=== PATIENT | female | born 1980 | race Caucasian/White ===

== ENCOUNTER 2018-08-13 06:55 | Day surgery (SDC) | payer OTHER ==
[2018-08-13] MEDS ORDERED: SCOPOLAMINE HYDROBROMIDE 1.5MG/72HR PATCH TD ONE ×2 (07:26→08:48)
[2018-08-13] MEDS ORDERED: FAMOTIDINE/PF 20 MG/2 ML VIAL ONE ×2 (07:26→08:48)
[2018-08-13] MEDS ORDERED: ENOXAPARIN SODIUM 40 MG/0.4 ML DISP.SYRIN SQ ONE (07:26)
[2018-08-13] MEDS ORDERED: LACTATED RINGERS 1,000 ML IV ONE (07:26)
[2018-08-13] MEDS ORDERED: FENTANYL 250MCG/5ML VIAL ONE (08:48)
[2018-08-13] MEDS ORDERED: GLYCOPYRROLATE 0.2 MG/1 ML 1 ML ONE (08:48)
[2018-08-13] MEDS ORDERED: ONDANSETRON HCL/PF 4 MG/ 2ML VIAL ONE (08:48)
[2018-08-13] MEDS ORDERED: LIDOCAINE HCL 2% PF 100MG/5ML VIAL IJ ONE (08:48)
[2018-08-13] MEDS ORDERED: DEXAMETHASONE SOD PHOS 4 MG/ML VIAL ONE (08:48)
[2018-08-13] MEDS ORDERED: PHENYLEPHRINE HCL 10 MG/1 ML ONE (08:48)
[2018-08-13] MEDS ORDERED: PROPOFOL 200 MG/20 ML VIAL IV ONE (08:48)
[2018-08-13] MEDS ORDERED: ACETAMINOPHEN 1,000 MG/100 ML INJ IV ONE (08:48)
[2018-08-13] MEDS ORDERED: SUGAMMADEX 200 mg/2mL ML VIAL IV ONE (08:48)
[2018-08-13] MEDS ORDERED: MIDAZOLAM HCL 2 MG/2 ML VIAL ONE (08:48)
[2018-08-13] MEDS ORDERED: HYDROmorphone HCL/PF 2 MG/ML VIAL ONE ×2 (08:48→10:59)
[2018-08-13] MEDS ORDERED: KETOROLAC TROMETHAMINE 30 MG/1ML VIAL ONE (08:48)
[2018-08-13] MEDS ORDERED: ROCURONIUM BROMIDE 10 MG/ML 5ML VIAL ONE (08:48)
[2018-08-13] MEDS ORDERED: ePHEDrine SULFATE 50 MG/1 ML IVP ONE (08:48)
[2018-08-13] MEDS ORDERED: LACTATED RINGERS 1,000 ML IV.SOLN IV ONE (08:48)
[2018-08-13] MEDS ORDERED: VASOPRESSIN 20 UNIT/1 ML ONE (08:48)
[2018-08-13] MEDS ORDERED: CLINDAMYCIN PHOSPHATE 900 MG/6 ML VIAL ONE (08:48)
[2018-08-13] MEDS ORDERED: SEVOFLURANE 250 ML LIQUID IH ONE (08:48)
== END 2018-08-13 12:03 | disposition other institution (70) ==
LOC: OPSURG 06:55
PROVIDERS: ATTEND Surgery
DX: E66.01 Morbid (severe) obesity due to excess calories (principal); Z68.43 Body mass index [BMI] 50.0-59.9, adult; E78.49 Other hyperlipidemia; M54.5 Low back pain
CPT/HCPCS: 88305; A9270; J1100; J1170; J1650; J1885; J2001; J2250; J2370; J2405; J2704; J3490; J7120; S0028; 43235; 43775

== ENCOUNTER 2018-08-13 12:04 | Inpatient (IN) | payer OTHER ==
--- NOTE | 2018-08-13 12:15 | History and Physical Report ---
History of Present Illnes - History of Present Illness Reason for Visit: S/P Gastric Sleeve History of Present Illness: Patient is a 38-year-old white female who has tried multiple diets and exercise programs with no success. Patient states that she has always been overweight and has struggled since she was a teenager. Patient and surgeon decided to proceed with gastric sleeve procedure. Procedure went well without complications- patient will be admitted and monitored s/p surgical intervention. - Past Medical History Cardiac: HTN, Hyperlipidemia Pulmonary: Sleep Apnea (with CPAP) Psych: Anxiety, Depression Musculoskeletal: Other (joint pain of feet/ankles) Endocrine: obesity Grav: 2 Para: 2 - Past Surgical History Past Surgical History: Other (uterine ablation), Tubal Ligation, Other (carpal tunnel release- right) - Past Social History Smoke: Quit Alcohol: Rare Drugs: None Lives: With Family Domestic Violence: Negative - Health Maintenance Health Maintenance: Influenza Vaccine Influenza Vaccine: Current for this Influenza Season Pneumonia Vaccine: No Resuscitation Status: Full code - Unable to Obtain History Unable to Obtain: No Review of Systems - Review of Systems Constitutional: negative: Fever, Chills, Weakness Eyes: negative: pain ENT: negative: Ear Pain, Throat Pain Respiratory: negative: Cough, Shortness of Breath Cardiovascular: negative: Chest Pain, Edema Gastrointestinal: Abdominal Pain (minimal- status post gastric sleeve). negative: Nausea, Vomiting Genitourinary: negative: Dysuria Musculoskeletal: negative: Foot Pain Skin: negative: Rash Neurological: negative: Weakness - Medications/Allergies Allergies/Adverse Reactions: Allergies Allergy/AdvReac Type Severity Reaction Status Date / Time cephalexin Allergy Verified 08/13/18 12:02 tramadol Allergy Verified 08/13/18 12:02 trazodone Allergy Verified 08/13/18 12:02 Exam - Exam General: Alert, Oriented to Person, Oriented to Place, Oriented to Time, Cooperative, No acute distress HEENT: Atraumatic, PERRLA, Mouth Mucous membr. moist/[place], Nose Mucous membr. moist/[place] Neck: Normal Range of Motion Carotids: no bruit Lungs: Clear to auscultation, Normal air movement, Speaks full Sentences Cardiovascular: Regular rate, Normal S1, Normal S2 Peripheral Edema: none Peripheral Pulses: 2+ Abdomen: Decreased Bowel Sounds Integumentary: Normal, [place], Warm, Dry, Other (incision dressings dry/intact) Extremities: No edema, Normal pulses, No tenderness/swelling Neurological: Normal gait (patient has already ambulated twice), Normal speech, Strength Equal Bilat, Sensation intact, Cranial nerves 3-12 NL Psych/Mental Status: Mental status NL, Mood NL, Appropriate Affect Assessment/Plan - Assessment/Plan (1) S/P gastric surgery Status: Acute Current Visit: Yes Assessment: Incisions are without redness/erythema, legs are without tenderness/pain, LCTA Plan: Will monitor incision sites, patient will be placed on Lovenox daily, frequent ambulation and SCDs while in bed, patient will use incentive spirometer to prevent resp. infections, will start PPI, and will give IVFs until patient can tolerate PO (2) Morbid obesity due to excess calories Status: Acute Current Visit: Yes Assessment: S/P gastric sleeve (3) Obstructive sleep apnea Status: Acute Current Visit: Yes Assessment: Stable with CPAP Plan: Will wear CPAP (4) Anxiety and depression Status: Acute Current Visit: Yes Assessment: Stable on home meds Plan: Will hold home meds until morning as long as patient can tolerate PO (5) Hypertension Status: Acute Current Visit: Yes Qualifiers: Hypertension type: essential hypertension Qualified Code(s): I10 - Essential (primary) hypertension Assessment: Blood pressures stable Plan: Will hold blood pressure medication (6) Hyperlipidemia Status: Acute Current Visit: Yes Qualifiers: Hyperlipidemia type: mixed hyperlipidemia Qualified Code(s): E78.2 - Mixed hyperlipidemia Assessment: stable on home meds Plan: will hold home meds till morning until pt can tolerate PO VTE Assessment - RISK FACTOR SCORE VTE RISK FACTOR SCORES: OBESITY, MAJOR SURGERY/ANESTHESIA TIME > 1 HOUR (Lovenox daily, frequent ambulation, SCDs while in bed)
[2018-08-13] MEDS ORDERED: PROMETHAZINE HCL 25 MG in 0.9 % SODIUM CHLORIDE 50 ML IV PRN (12:24)
[2018-08-13] MEDS ORDERED: fentaNYL CITRATE/PF 100 MCG/ 2ML AMP IVP PRN (12:24)
[2018-08-13] MEDS ORDERED: ONDANSETRON HCL/PF 4 MG/ 2ML VIAL IVP PRN (12:24)
[2018-08-13] MEDS ORDERED: HYDROCODON-ACETAMIN 7.5-325/15ML SOLN UD CUP PO PRN (12:24)
[2018-08-13] MEDS ORDERED: KETOROLAC TROMETHAMINE 30 MG/1ML VIAL IVP PRN (12:24)
[2018-08-13] MEDS ORDERED: LEVALBUTEROL HCL 1.25 MG/3 ML AMPUL.NEB NEB PRN (12:24)
[2018-08-13] MEDS ORDERED: ENOXAPARIN SODIUM 40 MG/0.4 ML DISP.SYRIN SQ SCH (13:00)
[2018-08-13] MEDS ORDERED: ENOXAPARIN SODIUM 40 MG/0.4 ML DISP.SYRIN SQ ONE (13:06)
[2018-08-13] MEDS: 0.9 % SODIUM CHLORIDE 1,000 ML IV SCH ×2 (13:12→22:34)
[2018-08-13 14:32] VITALS: BMI 52.0
[2018-08-13] MEDS: CLINDAMYCIN PHOSPHATE/D5W 600 MG/50 ML PIGGYBACK IV SCH ×2 (17:29→22:48)
[2018-08-13] MEDS ORDERED: CEFAZOLIN SODIUM/DEXTROSE,ISO 1 GM/50 ML PIGGYBACK IV SCH (18:00)
[2018-08-13] MEDS: FAMOTIDINE/PF 20 MG/2 ML VIAL IVP SCH (21:25)
[2018-08-14] MEDS ORDERED: 0.9 % SODIUM CHLORIDE 500 ML IV ONE (06:49)
--- NOTE | 2018-08-14 06:58 | Diagnostic Imaging Report ---
SJ RAGSDALE [facility] [address] [facility] [address] [place], [place]. [address] Report Submission Date: Aug 14, 2018 6:48:56 AM HEALTH PHYSICS TECHNICIAN Patient Study Name: YOHANNES FRANCISCO Date: Aug 14, 2018 6:06:17 AM HEALTH PHYSICS TECHNICIAN Modality Type: CT\SR Gender: F Description: CT ABD PELVIS W/O CO : 84 Institution: [facility] Physician: SJ RAGSDALE CT Abdomen/pelvis without contrast History: pt is post op x's 1 day for gastric sleeve, pt states pain and nausea this am. OMNI 350 93 ml (Hx) / ITS.REASON Hypotension/near syncope/status post gastric sleeve No comparison studies Bibasilar atelectasis greater on the left. Free intraperitoneal air consistent with provided history of postsurgery. No acute osseous pathology Moderate to large amount of hemoperitoneum. Liver has an irregular contour posteriorly, axial series 3 images 24- 27. Hurtado catheter decompresses the bladder, with tip of the Hurtado catheter seen to extend into the pelvis, ? perforated bladder. The gallbladder, spleen, adrenal glands, pancreas, kidneys are within normal limits. Postprocedural changes of sleeve gastrectomy are noted Uterine margins are not clearly seen, no obvious bowel obstruction Impression: 1. Post gastric sleeve surgery with large amount of complex dense intraabdominal fluid consistent with hemoperitoneum. Hematoma is noted adjacent to the stomach and adjacent to the liver, in Chapin's pouch and in the lesser sac. Small amount of free intraperitoneal air due to recent surgery 2. There is contural irregularity with of posterior right hepatic lobe, ? Laceration 3. Hurtado catheter tip protrudes outside the bladder into the pelvis, bladder perforation needs to be ruled out. Critical findings were discussed by Dr. Bruno with RN Gela Dumont on 08/14/18 at approx. 6:45 am HEALTH PHYSICS TECHNICIAN Electronically signed on Aug 14, 2018 6:48:56 AM HEALTH PHYSICS TECHNICIAN by: Vielka MURGUIA
--- NOTE | 2018-08-14 07:02 | Inpatient Progress Note ---
Subjective - Required Recertification Statement I anticipate X number of days because-include discharge plan: 2 - Review of Systems Events since last encounter: According to nursing staff "Patient called out at 0310 saying that she wanted to get out of bed. Patient anxious and was taking off CPAP and wanted SCD's off. Patient had only used CPAP for three other nights. Thought it was making her nervous. Patient was tearful and needed reassurance. Checked VS BP 88/56 and recheck was 114/76. Blood sugar was 156. S/S seemed to be resolved. Patient pleasant and relaxed by 0330"- Received call from RN at 4:58 this morning with report- ER provider had come down and seen patient- 3 liters of NS was given- pt continued to decline. CT was ordered and lab notified to get Type and Cross Patient will receive 3 units of blood today General: Chills, Fatigue HEENT: Visual Changes ("near syncopal episodes"). Denies: Head Aches Pulmonary: Dyspnea Cardiovascular: [place]. Denies: Chest Pain Gastrointestinal: Nausea, Abdominal Pain Genitourinary: Denies: Dysuria Neurological: Weakness (Patient hypotensive with position changes) Objective - Exam Vitals and I&O: Vital Signs Temp 97.4 F L 08/14/18 06:00 Pulse 78 08/14/18 06:00 Resp 18 08/14/18 06:00 BP 88/49 08/14/18 06:00 Pulse Ox 90 L 08/14/18 06:00 Intake & Output 08/13/18 08/13/18 08/14/18 11:59 23:59 11:59 Intake Total 900 480 Output Total 450 0 Balance 450 480 Weight 141.974 kg Intake: IV 800 450 Right Wrist 800 450 Oral 100 30 Output: Urine 450 0 Other: Voiding Method Toilet Toilet # Voids 2 # Bowel Movements 0 General: Severe distress (pt is pale, clammy, diaphoretic, hypotensive, lethargi c), Morbidly Obese HEENT: Atraumatic, PERRLA Neck: +2 carotid pulse wo bruit Lungs: Clear to auscultation, Normal air movement Cardiovascular: Regular rate, Normal S1, Normal S2 Abdomen: Soft, Decreased Bowel Sounds Extremities: No edema, No tenderness/swelling. No: Normal pulses (radial/brachial pulses very weak) Skin: Pale, Diaphoresis Neurological: Generalized Weakness Psych/Mental Status: Appropriate Affect ([place]) - Results Results: Arrived to Unit at 6:00 a.m.- pt already received 3 liters of fluid by ER provider- on my drive in at 5:30 I ordered for lab to get in immediately for type and screen so we are ready to transfuse- marketing finance manager in room at 7 a.m.- unable to draw blood- pt decompensated- Arterial stick for lab drawn by me via right brachial artery. Explained to wastewater analyst lab analyst that I needed blood STAT. Patient is in reverse trendelenburg. RN is one on one at the bedside. CT results of Abdomen and Pelvis Impression: 1. Post gastric sleeve surgery with large amount of complex dense intraabdominal fluid consistent with hemoperitoneum. Hematoma is noted adjacent to the stomach and adjacent to the liver, in Chapin's pouch and in the lesser sac. Small amount of free intraperitoneal air due to recent surgery 2. There is contural irregularity with of posterior right hepatic lobe, ? Laceration 3. Hurtado catheter tip protrudes outside the bladder into the pelvis, bladder perforation needs to be ruled out. Report from Radiologist received at 06:[address] Mccoy at 06:55 - Procedures Procedures: Will give 3 units of blood- gave 1 emergency unit Assessment/Plan - Assessment/Plan (1) S/P gastric surgery Status: Acute Current Visit: Yes Assessment: Patient is hypotensive- abdomen is soft, patient is lethargic Plan: CT completed of abdomen, 1 unit of emergency blood given and will infuse 2 more units, patient will be closely monitored- stopped Toradol & Lovenox (2) Morbid obesity due to excess calories Status: Acute Current Visit: Yes Assessment: S/P gastric sleeve (3) Obstructive sleep apnea Status: Acute Current Visit: Yes Assessment: Stable with CPAP (4) Anxiety and depression Status: Acute Current Visit: Yes Assessment: Stable at this time Plan: Will continue to hold meds (5) Hypertension Status: Acute Current Visit: Yes Qualifiers: Hypertension type: essential hypertension Qualified Code(s): I10 - Essential (primary) hypertension Assessment: Patient is hypotensive- already holding blood pressure medication (6) Hyperlipidemia Status: Acute Current Visit: Yes Qualifiers: Hyperlipidemia type: mixed hyperlipidemia Qualified Code(s): E78.2 - Mixed hyperlipidemia Assessment: Stable on home medication Plan: Will continue to hold home medications
[2018-08-14] MEDS: 0.9 % SODIUM CHLORIDE 1,000 ML IV SCH ×3 (07:31→20:02)
[2018-08-14] MEDS: FAMOTIDINE/PF 20 MG/2 ML VIAL IVP SCH ×2 (09:08→20:05)
[2018-08-14 10:06] LABS: MEAN CORPUSCULAR HEMOGLOBIN 26.6 pg (28.0-34.0)
[2018-08-14 10:07] LABS: BASOPHILS % 0.3 (0.0-1.5); EOSINOPHILS % 0.8 % (0.0-6.8); MONOCYTES % 6.8 % (0.0-11.0); NEUTROPHILS # 11.8 # k/uL (1.4-7.7); eGFR (Non-African) > 60
[2018-08-14 11:59] LABS: BASOPHILS % 0.5 (0.0-1.5); EOSINOPHILS % 0.9 % (0.0-6.8); MEAN CORPUSCULAR HEMOGLOBIN 27.1 pg (28.0-34.0); NEUTROPHILS # 15.4 # k/uL (1.4-7.7)
[2018-08-14] MEDS ORDERED: ENOXAPARIN SODIUM 40 MG/0.4 ML DISP.SYRIN SQ SCH (13:00)
[2018-08-14 20:47] LABS: BASOPHILS % 0.5 (0.0-1.5); EOSINOPHILS % 1.1 % (0.0-6.8); MEAN CORPUSCULAR HEMOGLOBIN 27.5 pg (28.0-34.0); MONOCYTES % 5.2 % (0.0-11.0); NEUTROPHILS # 13.4 # k/uL (1.4-7.7)
[2018-08-15] MEDS: 0.9 % SODIUM CHLORIDE 1,000 ML IV SCH (04:00)
[2018-08-15 07:46] LABS: BASOPHILS % 0.4 (0.0-1.5); EOSINOPHILS % 0.7 % (0.0-6.8); MEAN CORPUSCULAR HEMOGLOBIN 27.5 pg (28.0-34.0); MONOCYTES % 6.8 % (0.0-11.0); NEUTROPHILS # 9.5 # k/uL (1.4-7.7)
[2018-08-15 07:52] LABS: eGFR (Non-African) > 60
--- NOTE | 2018-08-15 08:09 | Inpatient Progress Note ---
Subjective - Required Recertification Statement I anticipate X number of days because-include discharge plan: 1 - Review of Systems General: Fatigue HEENT: Denies: Eye Pain, Ear Pain Pulmonary: Denies: Dyspnea, Cough Cardiovascular: Denies: Chest Pain Gastrointestinal: Nausea, Abdominal Pain (mild tenderness). Denies: Vomiting Genitourinary: Denies: Dysuria Musculoskeletal: Back Pain (from laying in bed) Neurological: Weakness Objective - Exam Vitals and I&O: Vital Signs Temp 98.5 F 08/15/18 05:16 Pulse 98 H 08/15/18 05:19 Resp 18 08/15/18 05:19 BP 102/48 08/15/18 05:16 Pulse Ox 92 08/15/18 05:16 Intake & Output 08/14/18 08/14/18 08/15/18 11:59 23:59 11:59 Intake Total 1830 540 200 Output Total 520 175 700 Balance 1310 365 -500 Intake: IV 1800 360 Right Wrist 1800 360 Oral 30 180 200 Output: Urine 520 175 700 Uretheral (Pate) 120 350 Other: Voiding Method Indwelling Catheter Indwelling Catheter Indwelling Catheter # Voids 2 # Bowel Movements 0 0 General: Alert, Oriented to Person, Oriented to Place, Oriented to Time, Cooperative, Mild distress HEENT: Atraumatic, PERRLA, Mouth Mucous membr. moist/[place], Nose Mucous membr. moist/[place] Neck: +2 carotid pulse wo bruit Lungs: Clear to auscultation, Normal air movement, Speaks full Sentences. No: Respiratory Distress, Wheezes Cardiovascular: Regular rate, Normal S1, Normal S2 Abdomen: Normal bowel sounds, Soft Extremities: No edema, Normal pulses, No tenderness/swelling Skin: Normal, [place], Warm, Dry Neurological: Normal gait, Normal speech, Strength Equal Bilat, Sensation intact Psych/Mental Status: Mental status NL, Mood NL, Appropriate Affect, Intact Judgment - Results Results: Laboratory Results WBC 13.20 K/ul (4.00-12.00) H 08/15/18 07:10 RBC 3.43 M/ul (3.90-5.20) L 08/15/18 07:10 Hgb 9.4 g/dL (12.0-16.0) L 08/15/18 07:10 Hct 28.5 % (34.5-46.5) L 08/15/18 07:10 MCV 83.0 fl (80.0-100.0) 08/15/18 07:10 MCH 27.5 pg (28.0-34.0) L 08/15/18 07:10 MCHC 33.1 g/dL (30.0-36.0) 08/15/18 07:10 RDW 15.6 % (11.3-14.3) H 08/15/18 07:10 Plt Count 266 K/mm3 (130-400) 08/15/18 07:10 Neut % (Auto) 72.4 % (39.0-79.0) 08/15/18 07:10 Lymph % (Auto) 19.7 % (16.0-50.0) 08/15/18 07:10 [place] % (Auto) 6.8 % (0.0-11.0) 08/15/18 07:10 Eos % (Auto) 0.7 % (0.0-6.8) 08/15/18 07:10 Baso % (Auto) 0.4 (0.0-1.5) 08/15/18 07:10 Neut # (Auto) 9.5 # k/uL (1.4-7.7) H 08/15/18 07:10 Lymph # (Auto) 2.6 # k/uL (0.6-4.0) 08/15/18 07:10 [place] # (Auto) 0.9 # k/uL (0.0-0.9) 08/15/18 07:10 Eos # (Auto) 0.1 # k/uL (0.0-0.6) 08/15/18 07:10 Baso # (Auto) 0.1 # k/uL (0.0-0.5) 08/15/18 07:10 Sodium 137 mmol/L (136-145) 08/15/18 07:10 Potassium 4.0 mmol/L (3.5-5.1) 08/15/18 07:10 Chloride 109 mmol/L (98-107) H 08/15/18 07:10 Carbon Dioxide 24 mmol/L (22-30) 08/15/18 07:10 BUN 12 mg/dL (7-17) 08/15/18 07:10 Creatinine 0.90 mg/dL (0.52-1.04) 08/15/18 07:10 Estimated Creat Clear 227 08/15/18 07:10 Est GFR ( Amer) > 60 (60-) 08/15/18 07:10 Est GFR (Non-Af Amer) > 60 (60-) 08/15/18 07:10 Glucose 124 mg/dL (74-106) H 08/15/18 07:10 Calcium 7.6 mg/dL (8.4-10.2) L 08/15/18 07:10 Total Bilirubin 0.3 mg/dL (0.2-1.3) 08/15/18 07:10 AST 16 U/L (15-46) 08/15/18 07:10 ALT 23 U/L (13-69) 08/15/18 07:10 Alkaline Phosphatase 60 U/L (38-126) 08/15/18 07:10 Total Protein 5.5 g/dL (6.3-8.2) L 08/15/18 07:10 Albumin 3.2 g/dL (3.5-5.0) L 08/15/18 07:10 Assessment/Plan - Assessment/Plan (1) S/P gastric surgery Status: Acute Current Visit: Yes Assessment: Patient doing very well today, skin is pink warm and dry, abdomen is soft with bowel sounds, heart is regular, incision dressings are dry and intact x5 Plan: Will continue to monitor Hgb. H & H this morning 9.4 & 28.5- Will get another CBC at 15:00. Patient had pate catheter removed and is voiding, we will get her up slowly in room and see how she does. If she does well we will get her up and walking in the hallway with assistance. She has been using incentive spirometer frequently and wearing SCDs while in bed. (2) Morbid obesity due to excess calories Status: Acute Current Visit: Yes Assessment: S/P gastric sleeve Plan: Monitoring diet - strict gastric sleeve protocol (3) Obstructive sleep apnea Status: Acute Current Visit: Yes Assessment: Stable with CPAP Plan: Continue to use CPAP (4) Anxiety and depression Status: Acute Current Visit: Yes Assessment: Patient would like to take her Wellbutrin Plan: Will start Wellbutrin (5) Hypertension Status: Acute Current Visit: Yes Qualifiers: Hypertension type: essential hypertension Qualified Code(s): I10 - Essential (primary) hypertension Assessment: Blood pressures are stable Plan: Will continue to hold blood pressure medication (6) Hyperlipidemia Status: Acute Current Visit: Yes Qualifiers: Hyperlipidemia type: mixed hyperlipidemia Qualified Code(s): E78.2 - Mixed hyperlipidemia Assessment: stable on home meds Plan: Continuing to hold medication
[2018-08-15] MEDS: buPROPion 150 MG TAB.ER.12H PO SCH ×2 (09:07→20:07)
[2018-08-15] MEDS: FAMOTIDINE/PF 20 MG/2 ML VIAL IVP SCH ×2 (09:07→20:57)
--- NOTE | 2018-08-15 23:20 | Diagnostic Imaging Report ---
SJ RAGSDALE [facility] [address] [facility] [address] [place] [address]. [id number] Report Submission Date: Aug 15, 2018 11:13:22 PM SECOND MILLER Patient Study Name: YOHANNES FRANCISCO Date: Aug 15, 2018 10:40:13 PM SECOND MILLER Modality Type: CT\SR Gender: F Description: CT ABD PELVIS W/ CON : 84 Institution: [facility] Physician: SJ RAGSDALE Computed tomography abdomen pelvis without contrast History: Low hemoglobin and low blood pressure Findings: Transverse abdomen and pelvis sections are obtained without contrast and compared with yesterday's exam. Gastric sleeve, gallbladder distension, mild bibasilar atelectasis, and moderately large right perihepatic hemoperitoneum are unchanged. The margin of the hemoperitoneum cannot be differentiated from the liver margin as they are isodense. The spleen, pancreas, adrenals, and kidneys are unremarkable. Bowel loops exhibit normal caliber and wall thickness. Pelvic sections reveal moderate hemoperitoneum without change since yesterday. A single air bubble is present in the urinary bladder. The margins of the uterus and ovaries are obscured by blood. Impression: 1. Moderate to large hemoperitoneum without change since yesterday. 2. Gastric sleeve, mild bibasilar atelectasis, and urinary bladder air bubble. Electronically signed on Aug 15, 2018 11:13:22 PM SECOND MILLER by: Mannie MURGUIA
[2018-08-16 07:37] LABS: BASOPHILS % 0.6 (0.0-1.5); EOSINOPHILS % 1.7 % (0.0-6.8); MEAN CORPUSCULAR HEMOGLOBIN 27.4 pg (28.0-34.0); MONOCYTES % 5.5 % (0.0-11.0)
[2018-08-16] MEDS ORDERED: 0.9 % SODIUM CHLORIDE 1,000 ML IV ONE ×2 (07:54→14:49)
[2018-08-16] MEDS ORDERED: 0.9 % SODIUM CHLORIDE 1,000 ML IV SCH ×2 (08:02→09:00)
[2018-08-16] MEDS: FAMOTIDINE/PF 20 MG/2 ML VIAL IVP SCH ×2 (08:58→20:04)
--- NOTE | 2018-08-16 08:59 | Inpatient Progress Note ---
Subjective - Required Recertification Statement I anticipate X number of days because-include discharge plan: 1 - Review of Systems Events since last encounter: Patient being monitored closely- Hgb last night dropped to 8.6 and systolic BP < 100- pt was not symptomatic according to staff. Decided to repeat Abdominal CT which is unchanged from the . HgB this morning via finger stick was 8.1. Patient is asymptomatic- alert and oriented, skin is pink warm dry, abdomen is soft with + bowel sounds, she is up and ambulatory without dizziness. We will advance patient diet to Bariatric stage 2 and start protein drinks. She is denying nausea or vomiting. We will get another CBC at 15:00 today. Will add NS @150cc/hr for additional hydration. (I have been in contact with Dr. Mccoy daily and updating on patient condition). CT of Abdomen; Impression: 1. Moderate to large hemoperitoneum without change since yesterday. 2. Gastric sleeve, mild bibasilar atelectasis, and urinary bladder air bubble. General: Denies: Fatigue, Appetite HEENT: Denies: Eye Pain, Ear Pain, Sore Throat Pulmonary: Denies: Dyspnea, Cough Cardiovascular: Denies: Chest Pain Gastrointestinal: Denies: Nausea, Vomiting, Abdominal Pain Genitourinary: Denies: Dysuria Musculoskeletal: Denies: Back Pain Neurological: Denies: Weakness Objective - Exam Vitals and I&O: Vital Signs Temp 98.3 F 08/16/18 08:19 Pulse 84 08/16/18 08:19 Resp 20 08/16/18 08:19 BP 80/50 08/16/18 08:19 Pulse Ox 96 08/16/18 08:19 Intake & Output 08/15/18 08/15/18 08/16/18 11:59 23:59 11:59 Intake Total 560 1170 180 Output Total 700 Balance -140 1170 180 Intake: IV 10 Right Antecubital 10 Oral 560 1160 180 Output: Urine 700 Uretheral (Hurtado) 350 Other: Voiding Method Toilet Toilet Toilet # Voids 0 2 1 # Bowel Movements 0 0 General: Alert, Oriented to Person, Oriented to Place, Oriented to Time, Cooperative, No acute distress HEENT: Atraumatic, EOMI, Mouth Mucous membr. moist/[place], Nose Mucous membr. moist/[place] Neck: +2 carotid pulse wo bruit Lungs: Clear to auscultation, Normal air movement, Speaks full Sentences Cardiovascular: Regular rate, Normal S1, Normal S2 Abdomen: Normal bowel sounds, Soft, No tenderness Extremities: No edema, Normal pulses, No tenderness/swelling Skin: Normal, [place], Warm, Dry Neurological: Normal gait, Normal speech, Strength Equal Bilat, Cranial nerves 3-12 NL Psych/Mental Status: Mental status NL, Mood NL, Appropriate Affect, Intact Judgment - Results Results: Laboratory Results WBC 8.00 K/ul (4.00-12.00) 08/16/18 07:15 RBC 2.94 M/ul (3.90-5.20) L 08/16/18 07:15 Hgb 8.1 g/dL (12.0-16.0) L 08/16/18 07:15 Hct 24.4 % (34.5-46.5) L 08/16/18 07:15 MCV 83.0 fl (80.0-100.0) 08/16/18 07:15 MCH 27.4 pg (28.0-34.0) L 08/16/18 07:15 MCHC 33.1 g/dL (30.0-36.0) 08/16/18 07:15 RDW 14.7 % (11.3-14.3) H 08/16/18 07:15 Plt Count 181 K/mm3 (130-400) 08/16/18 07:15 Neut % (Auto) 62.6 % (39.0-79.0) 08/16/18 07:15 Lymph % (Auto) 29.6 % (16.0-50.0) 08/16/18 07:15 [place] % (Auto) 5.5 % (0.0-11.0) 08/16/18 07:15 Eos % (Auto) 1.7 % (0.0-6.8) 08/16/18 07:15 Baso % (Auto) 0.6 (0.0-1.5) 08/16/18 07:15 Neut # (Auto) 5.0 # k/uL (1.4-7.7) 08/16/18 07:15 Lymph # (Auto) 2.4 # k/uL (0.6-4.0) 08/16/18 07:15 [place] # (Auto) 0.4 # k/uL (0.0-0.9) 08/16/18 07:15 Eos # (Auto) 0.1 # k/uL (0.0-0.6) 08/16/18 07:15 Baso # (Auto) 0.1 # k/uL (0.0-0.5) 08/16/18 07:15 Sodium 137 mmol/L (136-145) 08/15/18 07:10 Potassium 4.0 mmol/L (3.5-5.1) 08/15/18 07:10 Chloride 109 mmol/L (98-107) H 08/15/18 07:10 Carbon Dioxide 24 mmol/L (22-30) 08/15/18 07:10 BUN 12 mg/dL (7-17) 08/15/18 07:10 Creatinine 0.90 mg/dL (0.52-1.04) 08/15/18 07:10 Estimated Creat Clear 227 08/15/18 07:10 Est GFR ( Amer) > 60 (60-) 08/15/18 07:10 Est GFR (Non-Af Amer) > 60 (60-) 08/15/18 07:10 Glucose 124 mg/dL (74-106) H 08/15/18 07:10 Calcium 7.6 mg/dL (8.4-10.2) L 08/15/18 07:10 Total Bilirubin 0.3 mg/dL (0.2-1.3) 08/15/18 07:10 AST 16 U/L (15-46) 08/15/18 07:10 ALT 23 U/L (13-69) 08/15/18 07:10 Alkaline Phosphatase 60 U/L (38-126) 08/15/18 07:10 Total Protein 5.5 g/dL (6.3-8.2) L 08/15/18 07:10 Albumin 3.2 g/dL (3.5-5.0) L 08/15/18 07:10 Assessment/Plan - Assessment/Plan (1) S/P gastric surgery Status: Acute Current Visit: Yes Assessment: pt physical exam negative, BP <100 systolic, HgB 8.1 Plan: Will continue to monitor VS, she is ambulating frequently, SCDs while in bed, using Incentive Spirometer frequently, we will continue to monitor Hgb, CT of abdomen was unchanged, will advance diet to Bariatric stage 2 and introduce protein drinks (2) Morbid obesity due to excess calories Status: Acute Current Visit: Yes Assessment: S/P gastric sleeve (3) Obstructive sleep apnea Status: Acute Current Visit: Yes Assessment: Uses CPAP (4) Anxiety and depression Status: Acute Current Visit: Yes Assessment: Stable on home meds Plan: Will continue Wellbutrin (5) Hypertension Status: Acute Current Visit: Yes Qualifiers: Hypertension type: essential hypertension Qualified Code(s): I10 - Essential (primary) hypertension Assessment: Blood pressure < 100 systolic Plan: Will continue to hold BP med (6) Hyperlipidemia Status: Acute Current Visit: Yes Qualifiers: Hyperlipidemia type: mixed hyperlipidemia Qualified Code(s): E78.2 - Mixed hyperlipidemia Assessment: Stable on home meds Plan: Will continue to hold home med
[2018-08-16] MEDS: buPROPion 150 MG TAB.ER.12H PO SCH ×2 (09:00→20:05)
[2018-08-17 07:41] LABS: BASOPHILS % 0.4 (0.0-1.5); EOSINOPHILS % 1.9 % (0.0-6.8); MEAN CORPUSCULAR HEMOGLOBIN 26.8 pg (28.0-34.0); MONOCYTES % 6.2 % (0.0-11.0); NEUTROPHILS # 5.8 # k/uL (1.4-7.7)
--- NOTE | 2018-08-17 07:46 | Inpatient Progress Note ---
Subjective - Required Recertification Statement I anticipate X number of days because-include discharge plan: 1 - Review of Systems Events since last encounter: Patient has done physically well over the last 24 hours. She is alert and oriented- has been up walking in the halls without and difficulty- she has had no shortness of breath, abdomen is soft with + bowel sounds, patient states that she feels great. However, blood draw this am showed a Hgb < 6, redrew lab and 2nd Hgb was 6.8- Contacted Dr. Mccoy and we decided to transfuse 2 more units and keep patient another night. We will continue to monitor patient closely. She is still using her incentive spirometer frequently- tolerating stage 2 Bariatric Diet very well. General: Denies: Malaise HEENT: Denies: Eye Pain, Ear Pain Pulmonary: Denies: Dyspnea, Cough Cardiovascular: Denies: Chest Pain, Palpitations, Edema, Light Headedness Gastrointestinal: Denies: Nausea, Vomiting, Abdominal Pain Genitourinary: Denies: Dysuria Musculoskeletal: Denies: Back Pain Neurological: Denies: Weakness Objective - Exam Vitals and I&O: Vital Signs Temp 97.8 F 08/17/18 06:00 Pulse 86 08/17/18 06:00 Resp 20 08/17/18 06:00 BP 84/54 08/17/18 06:00 Pulse Ox 96 08/17/18 06:00 Intake & Output 08/16/18 08/16/18 08/17/18 11:59 23:59 11:59 Intake Total 180 1800 30 Output Total 600 600 Balance 180 1200 -570 Intake: IV 1000 Left wrist 1000 Oral 180 800 30 Output: Urine 600 600 Other: Voiding Method Toilet Toilet # Voids 1 2 1 # Bowel Movements 2 General: Alert, Oriented to Person, Oriented to Place, Oriented to Time, Cooperative HEENT: Atraumatic, PERRLA, Mouth Mucous membr. moist/Kam[place], Nose Mucous membr. moist/[place]rar Neck: No JVD, +2 carotid pulse wo bruit Lungs: Clear to auscultation, Normal air movement, Speaks full Sentences Cardiovascular: Regular rate, Normal S1, Normal S2 Abdomen: Normal bowel sounds, Soft Extremities: No edema, Normal pulses, No tenderness/swelling Skin: Normal, [place], Warm, Dry Neurological: Normal gait, Normal speech, Strength Equal Bilat, Sensation intact Psych/Mental Status: Mental status NL, Mood NL, Appropriate Affect - Results Results: Laboratory Results WBC 8.00 K/ul (4.00-12.00) 08/16/18 07:15 RBC 2.94 M/ul (3.90-5.20) L 08/16/18 07:15 Hgb 8.1 g/dL (12.0-16.0) L 08/16/18 07:15 Hct 24.4 % (34.5-46.5) L 08/16/18 07:15 MCV 83.0 fl (80.0-100.0) 08/16/18 07:15 MCH 27.4 pg (28.0-34.0) L 08/16/18 07:15 MCHC 33.1 g/dL (30.0-36.0) 08/16/18 07:15 RDW 14.7 % (11.3-14.3) H 08/16/18 07:15 Plt Count 181 K/mm3 (130-400) 08/16/18 07:15 Neut % (Auto) 62.6 % (39.0-79.0) 08/16/18 07:15 Lymph % (Auto) 29.6 % (16.0-50.0) 08/16/18 07:15 Wilcox % (Auto) 5.5 % (0.0-11.0) 08/16/18 07:15 Eos % (Auto) 1.7 % (0.0-6.8) 08/16/18 07:15 Baso % (Auto) 0.6 (0.0-1.5) 08/16/18 07:15 Neut # (Auto) 5.0 # k/uL (1.4-7.7) 08/16/18 07:15 Lymph # (Auto) 2.4 # k/uL (0.6-4.0) 08/16/18 07:15 Wilcox # (Auto) 0.4 # k/uL (0.0-0.9) 08/16/18 07:15 Eos # (Auto) 0.1 # k/uL (0.0-0.6) 08/16/18 07:15 Baso # (Auto) 0.1 # k/uL (0.0-0.5) 08/16/18 07:15 Sodium 137 mmol/L (136-145) 08/15/18 07:10 Potassium 4.0 mmol/L (3.5-5.1) 08/15/18 07:10 Chloride 109 mmol/L (98-107) H 08/15/18 07:10 Carbon Dioxide 24 mmol/L (22-30) 08/15/18 07:10 BUN 12 mg/dL (7-17) 08/15/18 07:10 Creatinine 0.90 mg/dL (0.52-1.04) 08/15/18 07:10 Estimated Creat Clear 227 08/15/18 07:10 Est GFR ( Amer) > 60 (60-) 08/15/18 07:10 Est GFR (Non-Af Amer) > 60 (60-) 08/15/18 07:10 Glucose 124 mg/dL (74-106) H 08/15/18 07:10 Calcium 7.6 mg/dL (8.4-10.2) L 08/15/18 07:10 Total Bilirubin 0.3 mg/dL (0.2-1.3) 08/15/18 07:10 AST 16 U/L (15-46) 08/15/18 07:10 ALT 23 U/L (13-69) 08/15/18 07:10 Alkaline Phosphatase 60 U/L (38-126) 08/15/18 07:10 Total Protein 5.5 g/dL (6.3-8.2) L 08/15/18 07:10 Albumin 3.2 g/dL (3.5-5.0) L 08/15/18 07:10 Assessment/Plan - Assessment/Plan (1) S/P gastric surgery Status: Acute Current Visit: Yes Assessment: LCTA, HRR, Abdomen soft with + bowel sounds, no edema or tenderness to lower extremities Plan: Due to low hemoglobin we will transfuse 2 units of PRBC today (2) Morbid obesity due to excess calories Status: Acute Current Visit: Yes Assessment: S/P GAstric Sleeve (3) Obstructive sleep apnea Status: Acute Current Visit: Yes Assessment: patient states that CPAP machine has to much pressure Plan: RT will look at machine today (4) Anxiety and depression Status: Acute Current Visit: Yes Assessment: stable on home meds Plan: Will continue wellbutrin (5) Hypertension Status: Acute Current Visit: Yes Qualifiers: Hypertension type: essential hypertension Qualified Code(s): I10 - Essential (primary) hypertension Assessment: stable on home meds Plan: Will hold home meds (blood pressure stables) (6) Hyperlipidemia Status: Acute Current Visit: Yes Qualifiers: Hyperlipidemia type: mixed hyperlipidemia Qualified Code(s): E78.2 - Mixed hyperlipidemia Assessment: stable on home meds Plan: Will hold medication at this time
[2018-08-17] MEDS ORDERED: 0.9 % SODIUM CHLORIDE 0 ML IV ONE (07:58)
[2018-08-17] MEDS: buPROPion 150 MG TAB.ER.12H PO SCH ×2 (08:53→20:49)
[2018-08-17] MEDS: FAMOTIDINE/PF 20 MG/2 ML VIAL IVP SCH (09:03)
[2018-08-18 07:02] LABS: MEAN CORPUSCULAR HEMOGLOBIN 27.7 pg (28.0-34.0); MONOCYTES % 6.6 % (0.0-11.0)
[2018-08-18 07:03] LABS: BASOPHILS % 0.6 (0.0-1.5); EOSINOPHILS % 2.5 % (0.0-6.8); NEUTROPHILS # 7.2 # k/uL (1.4-7.7)
[2018-08-18] MEDS ORDERED: ONDANSETRON HCL 4 MG TAB.RAPDIS PO ONE (07:04)
[2018-08-18] MEDS ORDERED: HYDROcodone /APAP 10/325 1 EACH TABLET PO ONE (07:05)
--- NOTE | 2018-08-18 07:11 | Discharge Summary ---
Discharge Summary - Discharge Sumary History of Present Illness: Patient is a 38-year-old white female who has tried multiple diets and exercise programs with no success. Patient states that she has always been overweight and has struggled since she was a teenager. Patient and surgeon decided to proceed with gastric sleeve procedure. Procedure went well without complications- patient will be admitted and monitored s/p surgical intervention. Condition at Discharge: Stable Home Medications: Ambulatory Orders Medication Instructions Recorded Bupropion HCl [Wellbutrin Xl] 300 mg PO DAILY 08/13/18 Buspirone HCl [Buspar] 15 mg PO DAILY 08/13/18 RX: Atorvastatin Calcium 40 mg PO HS 08/13/18 RX: Hydrochlorothiazide 25 mg PO DAILY 08/13/18 RX: Quetiapine Fumarate 50 mg PO BID 08/13/18 Consultations this Visit: None Procedures this Visit: Transfusion (x4 units), Other (s/p gastric sleeve) Allergies/Adverse Reactions: Allergies Allergy/AdvReac Type Severity Reaction Status Date / Time cephalexin Allergy Mild Verified 08/13/18 15:55 tramadol Allergy Verified 08/13/18 12:02 trazodone Allergy Verified 08/13/18 12:02 Patient Problems: Current Active Problems Problem Status Onset Anxiety and depression Acute Hyperlipidemia Acute Hypertension Acute Morbid obesity due to excess calories Acute Obstructive sleep apnea Acute S/P gastric surgery Acute Discharge Summary: Patient is very eager to go home today- She states that she feels great- denies any dizziness with position changes, denies shortness of breath, denies abdominal pain and nausea Hemoglobin this morning is 9.0 and patient is asymptomatic. Her sister has stayed with her throughout hospitalization and edinson ingram continue to help her at home. Patient has follow up appointment on 08/21/18. We will send a copy of labs with her. She understands all discharge instructions- she will keep using incentive spirometer at home and frequent ambulation. Hospital Course: Patient received a total of 4 units of PRBCs during hospitalization- patient has been asymptomatic after first 2 units. Bleed is unchanged. She received her last 2 units on 08/17/17 for a hgb < 7. She is doing very good- she has been up and ambulating for the last couple of days- has been using incentive spirometer frequently- no cough/no shortness of breath. Hemoglobin this morning is 9.0 and patient is excited to go home. Last abdominal CT Results. Impression: 1. Moderate to large hemoperitoneum without change since yesterday. 2. Gastric sleeve, mild bibasilar atelectasis, and urinary bladder air bubble. - Final Diagnosis (1) S/P gastric surgery Problems: Patient received a total of 4 units fo PRBCs- Right or Left: Right (2) Morbid obesity due to excess calories Problems: Patient on bariatric stage 2 diet and has done very well. Right or Left: Right (3) Obstructive sleep apnea Problems: pt uses CPAP Right or Left: Right (4) Anxiety and depression Problems: stable on home meds Right or Left: Right (5) Hypertension Problems: Hold blood pressure medications Right or Left: Right (6) Hyperlipidemia Problems: stable on home meds Right or Left: Right
[2018-08-18] MEDS ORDERED: HYDROcodone /APAP 5/325 1 EACH TABLET ONE (07:39)
[2018-08-18] MEDS: buPROPion 150 MG TAB.ER.12H PO SCH (07:41)
[2018-08-18 08:18] VITALS: BP 111/66
[2018-08-19 08:00] LABS: MEAN CORPUSCULAR HEMOGLOBIN 27.2 pg (28.0-34.0)
[2018-08-19 08:01] LABS: BASOPHILS % 0.5 (0.0-1.5); EOSINOPHILS % 0.8 % (0.0-6.8); MONOCYTES % 7.8 % (0.0-11.0); NEUTROPHILS # 8.7 # k/uL (1.4-7.7)
== END 2018-08-18 08:10 | disposition home or self-care (01) | DRG 641 ==
LOC: SOUTH 12:04
PROVIDERS: ADMIT Nurse Practitioner Family; ATTEND Nurse Practitioner Family
DX: K66.1 Hemoperitoneum (principal); E66.09 Other obesity due to excess calories; G47.33 Obstructive sleep apnea (adult) (pediatric); I10 Essential (primary) hypertension; F41.9 Anxiety disorder, unspecified; E78.2 Mixed hyperlipidemia; N32.89 Other specified disorders of bladder; F32.9 Major depressive disorder, single episode, unspecified
CPT/HCPCS: 36415; 36430; 74177; 80053; 85025; 99231; 99232; 99238; J1650; J1885; J2550; J7060; S0028; A9270; A9270-GY; J7030; Q9967; S1016